=== PATIENT | male | born 1965 | race African-American/Black ===

== ENCOUNTER 2018-02-20 06:43 | Observation (INO) ==
[2018-02-20] MEDS ORDERED: Naloxone 0.4 MG/ML INJ IVP PRN (10:09)
--- NOTE | 2018-02-20 10:47 | Internal Med History&Physical ---
Date of Encounter: 02/20/18 Time of Encounter: 10:30 Internal Medicine - H&P: HPI Chief complaint: Chest pain Admitted From: Emergency Dept Plans for Post Hospital Care: Home History of present illness: Mr. Méndez is a 52 year old male patient with a history of coronary artery disease status post CABG, prior stents who presented to the ER with complaints of left shoulder pain radiating down into his left arm. Patient reports that it woke him up earlier this morning. He took 3 baby aspirins. His pain improved but he developed palpitations. He then went and exercised for some time as he attributed the palpitations do a recent traumatic event. Patient continued to have palpitations and so he into the ER to get checked out. In the ER he received another aspirin. This seemed to stop his palpitations and also took care of his left shoulder pain. Patient has not had any issues with his shoulder. Even while he was exercising he did not have any trouble performing any shoulder exercises. He denies any shortness of breath. He denies any pedal edema or orthopnea. No cough. No fevers or chills. Patient underwent a stress test earlier this year which showed no signs of ischemia. Patient had an EF of 56%. Patient reports that he underwent a stress test for an episode of palpitations. This was believed to be due to him using taurine supplements. He is no longer using the supplements but she does take some L-arginine, nitrous oxide, some amino acids supplements. Presently he does not have any chest pain. No palpitations. His left shoulder pain has not recurred Past Med Surg Social Fam HX - Past Medical History Attestation: Yes The following information was validated with the patient. Source: patient Medical history: coronary artery disease - Past Surgical History Surgical History: coronary bypass (CABG) - Social History Drug use: none Current living situation: Home - Independent - Additional Family History Additional family history: Family history reviewed and found to be noncontributory at this time Internal Medicine - H&P: Meds Allergy/AdvReac Type Severity Reaction Status Date / Time Penicillins Allergy Unknown See Unverified 08/21/15 03:25 Comments atorvastatin [From Lipitor] AdvReac Muscle Pain Unverified 08/21/15 03:27 venom-honey bee AdvReac See Unverified 08/21/15 03:30 [bee venom (honey bee)] Comments BEE Allergy Unknown See Uncoded 08/21/15 03:30 Comments MORPHINE Allergy See Uncoded 08/21/15 03:26 Comments LIPITOR AdvReac Muscle Pain Uncoded 08/21/15 03:28 LISINOPRIL AdvReac See Uncoded 08/21/15 03:20 Comments ZOCOR AdvReac Muscle Pain Uncoded 08/21/15 03:27 All Systems PM: A 10-system review of systems was performed and is negative for pertinent findings except as documented above in the HPI. - Constitutional Constitutional: no chills, no fever(s), no night sweats - EENT Eyes: no change in vision, no discharge, no pain, no photophobia Ears: no ear discharge, no ear pain, no tinnitus Nose, mouth and throat: no dysphagia, no nasal discharge, no neck pain, no sore throat - Cardiovascular Cardiovascular ROS IM: palpitations, no chest pain, no diaphoresis, no dyspnea, no lightheadedness, no syncope - Respiratory Respiratory: no cough, no dyspnea, no wheezing, no excessive phlegm production - Gastrointestinal Gastrointestinal: no abdominal pain, no diarrhea, no hematemesis, no hematochezia, no melena, no nausea, no vomiting - Musculoskeletal Musculoskeletal ROS IM: no numbness, no tingling Additional comments: left shoulder pain radiating down the left arm - Integumentary Integumentary IM: no rash, no unusual bruising - Neurological Neurological ROS: no confusion, no convulsions, no focal weakness, no numbness, no tingling, no tremor(s) - Hematologic/Lymphatic Hematologic/Lymphatic: no easy bruising - Constitutional General appearance: Present: cooperative, A&O X 3, pleasant, answers questions appropriately Exam: General: Patient is alert, no acute distress, oriented x 3 Head: atraumatic, normocephalic, ENT: Mucous membranes moist Chest: normal inspection, symmetric chest rise Respiratory: Good respiratory effort. Normal breath sounds. No wheezing or crackles. Cardiovascular: Regular rate and rhythm. s1 and s2 normal No clicks, rubs, gallops, or murmurs. No pedal edema Abdomen: Abdomen is soft, nontender. Bowel sounds are present Musculoskeletal: Spontaneously moving all extremities, no left shoulder tenderness Skin: warm, dry, intact. Neuro: Alert oriented x 3 normal cranial nerves, no focal deficits Psych: Patient's affect is normal Internal Med - H&P Results - Labs Labs: Sodium 142, potassium 3.8, BUN 18, creatinine 1.48, WBC 4, hemoglobin 14, PT 12.2, INR 1.04 - EKG Data EKG shows normal: sinus rhythm - EKG Data EKG comments: 02/20/18 10:50 Right bundle-branch block-incomplete - Assessment and plan (1) Left shoulder pain Current Visit: Yes Status: Acute Assessment and plan: Patient reports left shoulder pain radiating down his left arm. Possible anginal equivalent. Patient has had coronary artery bypass surgery. And has underlying coronary artery disease. We will monitor with telemetry. Trend troponins. We will also obtain 2-D echocardiogram. If any new abnormalities noted, consult cardiology. At this time, I do not see any value in repeating the cardiac stress test as he had one within the past year and has underlying bad coronary artery disease. Qualifiers: Chronicity: acute Qualified Code(s): M25.512 - Pain in left shoulder (2) Coronary artery disease Current Visit: Yes Status: Acute Assessment and plan: Underlying coronary artery disease with left shoulder pain radiating down left arm concerning for anginal equivalent. Continue home medications including aspirin, Plavix and beta nena and statin. Qualifiers: Coronary Disease-Associated Artery/Lesion type: [place] artery [place] vs. transplanted heart: [place] heart Associated angina: with other forms of angina Qualified Code(s): I25.118 - Atherosclerotic heart disease of [place] coronary artery with other forms of angina pectoris (3) Palpitations Current Visit: Yes Status: Acute Assessment and plan: Etiology uncertain. Patient reports having an irregular heartbeat earlier this year. EKG does not show any rhythm abnormality. Patient does have underlying incomplete right bundle branch block. Will monitor with telemetry here. Consider follow up with a Holter monitor as outpatient (4) Essential hypertension Current Visit: Yes Status: Chronic Assessment and plan: Monitor blood pressure. Resume home medications. (5) Hyperlipidemia Current Visit: Yes Status: Chronic Assessment and plan: continue statin. Qualifiers: Hyperlipidemia type: mixed hyperlipidemia Qualified Code(s): E78.2 - Mixed hyperlipidemia - Time Spent With Patient Total time spent is greater than 50% in coordination of care (as documented) at patient's floor/unit and/or counseling patient:
[2018-02-21 06:36] LABS: Basophils % 0.5 %; Eosinophils # 0.1 K/mcL (0.0-0.6); Eosinophils % 1.6 %; Hematocrit 45.3 % (37.5-50.1); Hemoglobin 14.5 g/dL (12.9-16.9); Lymphocytes # 1.1 K/mcL (0.6-4.6); Lymphocytes % 25.1 %; Mean Corpuscular Volume 81.2 fL (83.0-100.0); Mean Platelet Volume 10.4 fL (9.4-12.4); Monocytes # 0.4 K/mcL (0.0-1.3); Monocytes % 8.3 %; Neutrophils # 2.8 K/mcL (1.6-8.9); Platelet Count 105 K/mcL (140-400); Red Blood Count 5.58 M/mcL (4.19-5.50); Red Cell Distribution Width 13.2 % (11.5-14.5); Segmented Neutrophils % 64.5 %
[2018-02-21 06:56] LABS: BUN/Creatinine Ratio 10 (6-26); Blood Urea Nitrogen 13 mg/dL (6-20); Calcium 9.3 mg/dL (8.6-10.3); Carbon Dioxide 28 mEq/L (23-29); Chloride 105 mEq/L (98-107); Glucose 97 mg/dL (70-105); Osmolality,Calculated 288 (280-300); Sodium 139 mEq/L (136-145); eGFR For Non-African Americans 56 (> 60)
[2018-02-21 08:18] VITALS: BP 166/72
[2018-02-21] MEDS ORDERED: Metoprolol 100 MG TABLET PO SCH (09:00)
[2018-02-21] MEDS ORDERED: Aspirin Enteric Coated 81 MG Tablet PO SCH (09:00)
--- NOTE | 2018-02-21 10:58 | Discharge Summary ---
- NOTES TO OUTPATIENT PROVIDER Notes to Outpatient Provider: f/u with your bean dumper within a week of hospital discharge. Orders not resulted at time of discharge: Pending orders 02/20/18 10:15 EV echocardiogram Routine Date of Encounter: 02/21/18 Time of Encounter: 10:55 - Discharge Diagnosis (1) Palpitations Priority: Primary Status: Resolved (2) Left shoulder pain Priority: Secondary Status: Resolved Qualifiers: Chronicity: acute Qualified Code(s): M25.512 - Pain in left shoulder (3) Coronary artery disease Priority: Secondary Status: Chronic Qualifiers: Coronary Disease-Associated Artery/Lesion type: [place] artery [place] vs. transplanted heart: [place] heart Associated angina: with other forms of angina Qualified Code(s): I25.118 - Atherosclerotic heart disease of [place] coronary artery with other forms of angina pectoris (4) Essential hypertension Priority: Secondary Status: Chronic (5) Hyperlipidemia Priority: Secondary Status: Chronic Qualifiers: Hyperlipidemia type: mixed hyperlipidemia Qualified Code(s): E78.2 - Mixed hyperlipidemia Hospital course: Mr. Méndez is a 52 year old male history of coronary artery disease status post CABG, prior stents who presented to the ER with complaints of left shoulder pain radiating down into his left arm. Patient reports that it woke him up earlier this morning. He took 3 baby aspirins. His pain improved but he developed palpitations. Patient admitted to the hospital due to shoulder pain and palpitations after taking a supplement. Serial trops negative, no palpitations or irregular telemetry tracing reported during this admission. As patient acute symptoms have resolved. Patient will be dc home. recommended to follow up with his pcp within a week of hospital dc. - Time Spent with Patient Total time spent providing and/or coordinating discharge services: Greater than 30 minutes (35) - Discharge Medications Home Medications: Aspirin [Adult Aspirin Regimen] 81 mg PO DAILY 02/20/18 [History] Fish Oil 1,200 mg Softgel 1,200 mg PO DAILY 02/20/18 [History] Lopressor 100 mg PO DAILY 02/20/18 [History] Plavix 75 mg PO DAILY 02/20/18 [History] Allergies/Adverse Reactions: Allergy/AdvReac Type Severity Reaction Status Date / Time morphine Allergy Severe See Verified 02/20/18 19:58 Comments Penicillins Allergy Unknown See Verified 02/20/18 15:01 Comments venom-honey bee AdvReac Severe See Verified 02/20/18 19:58 [bee venom (honey bee)] Comments atorvastatin [From Lipitor] AdvReac Muscle Pain Verified 02/20/18 15:01 lisinopril AdvReac Muscle Pain Verified 02/20/18 19:58 simvastatin [From Zocor] AdvReac Muscle Pain Verified 02/20/18 19:58 Date of admission: 02/20/18 08:27 Primary care physician: Frederick Casey DO - Constitutional Vitals: Temp Pulse Resp BP Pulse Ox 97.6 F 67 16 166/72 95 02/21/18 03:24 02/21/18 08:17 02/21/18 08:17 02/21/18 08:17 02/21/18 08:17 General appearance: Present: cooperative, A&O X 3, pleasant, answers questions appropriately Exam: Vitals: Reviewed. General: Alert and oriented x4. In no acute distress. Skin: Normal color, no rash, no lesions. HEENT: EOM, pupils equal, round and reactive. Cardiovascular: RRR, Normal S1 & S2, no rubs, murmurs or gallops. Lungs: CTA b/l, no wheezes or crackles. Abdomen: Soft, non-tender, no rigidity. Extremities: No deformity, no edema or tenderness, no joint swelling or clubbing. Neurological: Normal cognition and motor skills. Rest of the physical exam is non contributory - Patient Status Disposition: Home, Self-Care Condition: Good Functional capacity at discharge: independent ambulation Overall status at discharge: patient is back to baseline - Discharge Instructions Follow Up With: Dangelo Casey DO [Primary Care Provider] - - Diet and Activity Activity: resume usual activities as tolerated Diet: low salt diet
== END 2018-02-21 11:16 | disposition home or self-care (01) ==
LOC: 2ANU
PROVIDERS: ADMIT Family Medicine; ATTEND Family Medicine